=== PATIENT | male | born 1975 | race Caucasian/White ===

== ENCOUNTER 2018-11-02 13:30 | Emergency (ER) | payer SELFPAY ==
[~2018-11-02] VITALS: Ht 170.2 cm; Wt 86.4 kg
[2018-11-02 13:33] VITALS: TEMP 97.4
[2018-11-02] MEDS ORDERED: RT ADVAIR 228 DISKUS IH (13:38)
[2018-11-02] MEDS ORDERED: SINGULAIR 110 MG/TAB PO (13:38)
[2018-11-02] MEDS ORDERED: PROAIR HFA0.09 MG/AC IH (13:39)
[2018-11-02] MEDS ORDERED: PREDNISONE20 MG PO (14:25)
[2018-11-02 15:33] VITALS: BP 123/73; PULSE 94
== END 2018-11-02 15:33 | disposition home or self-care (01) ==
LOC: COL.ER 13:30
DX: J45.901 Unspecified asthma with (acute) exacerbation (principal); Z79.51 Long term (current) use of inhaled steroids
CPT/HCPCS: J2930; J7030

== ENCOUNTER 2018-12-15 21:36 | Emergency (ER) | payer SELFPAY ==
[~2018-12-15] VITALS: Ht 170.2 cm; Wt 86.4 kg
[~2018-12-15 21:36] MED LIST: PREDNISONE20 MG PO; PROAIR HFA0.09 MG/AC IH; RT ADVAIR 228 DISKUS IH; SINGULAIR 110 MG/TAB PO
[2018-12-15 21:46] VITALS: BP 127/99; TEMP 97.9
[2018-12-15 22:45] VITALS: PULSE 86
== END 2018-12-15 22:45 | disposition home or self-care (01) ==
LOC: COL.ER 21:36
DX: S51.811A Laceration without foreign body of right forearm, initial encounter (principal); Z23 Encounter for immunization; Z79.51 Long term (current) use of inhaled steroids; W26.8XXA Contact with other sharp object(s), not elsewhere classified, initial encounter; Y92.009 Unspecified place in unspecified non-institutional (private) residence as the place of occurrence of the external cause

== ENCOUNTER 2019-01-28 12:18 | Emergency (ER) | payer SELFPAY ==
[~2019-01-28] VITALS: Ht 170.2 cm; Wt 86.4 kg
[2019-01-28] MEDS ORDERED: PREDNISONE20 MG PO ×2 (12:30→14:52)
[2019-01-28 13:15] LABS: BASO # 0.1 (0.0-0.2); BASO % 0.4 % (0.0-2.0); EOS # 0.1 (0.0-0.7); EOS % 0.7 % (0-4.0); GRAN % 77.6 % (42.2-75.2); HEMATOCRIT 46.4 % (42.0-52.0); HEMOGLOBIN 15.9 g/dl (13.5-18.0); LYMPH # 1.9 (1.2-3.4); LYMPH % 16.5 % (20.0-51.0); MEAN CELL VOLUME 101 fl (80.0-100.0); MEAN CORPUSCULAR HEMOGLOBIN 35 pg (27.0-31.0); MEAN CORPUSCULAR HGB CONC 34 g/dl (33.0-37.0); MEAN PLATELET VOLUME 10.1 fl (7.4-10.4); MONO # 0.5 (0.1-0.6); MONO % 4.2 % (1.7-9.3); PLATELET COUNT 203 K/mm3 (130-400); REDCELL DISTRIBUTION WIDTH-CV 12.1 % (11.5-14.5)
[2019-01-28 13:27] LABS: ALBUMIN 4.8 gm/dL (3.5-5.0); BILIRUBIN,TOTAL 0.5 mg/dL (0.0-1.0); CREATININE, serum 1.1 (0.66-1.25); TOTAL PROTEIN 7.3 gm/dL (6.4-8.2)
[2019-01-28 14:44] LABS: ARTERIAL BLD GAS O2 SATURATION 97.8 % (92-100); ARTERIAL BLD GAS TCO2 CT 21.4; ARTERIAL BLOOD GAS BASE EXCESS -4.4 (-2-2); ARTERIAL BLOOD GAS HCO3 20.3 meq/L (22-26); ARTERIAL BLOOD GAS PCO2 36.5 mmHg (35-45); ARTERIAL BLOOD GAS PO2 120.6 mmHg (80-100); ARTERIAL BLOOD GAS pH 7.36 (7.35-7.45)
[2019-01-28] MEDS ORDERED: VENTOLIN0.09 MG IH (14:52)
[2019-01-28] MEDS ORDERED: IPRATROPIUM BROM3 M1 IH (14:52)
[2019-01-28 15:09] VITALS: BP 135/89; PULSE 99; TEMP 98.2
== END 2019-01-28 15:03 | disposition home or self-care (01) ==
LOC: COL.ER 12:18
PROVIDERS: Emergency Medicine
DX: J45.901 Unspecified asthma with (acute) exacerbation (principal); Z79.51 Long term (current) use of inhaled steroids
CPT/HCPCS: J3475; J7030